=== PATIENT | female | born 1990 | race American Indian/Alaskan Native ===

== ENCOUNTER 2016-09-13 13:25 | Emergency (ER) | payer OTHER, BC ==
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
--- NOTE | 2016-09-13 19:27 | Cat Scan Report ---
FINAL REPORT PROCEDURE: CT LUMBAR SPINE WO CON TECHNIQUE: Computerized axial tomography of the lumbar spine was performed from T12 to the sacrum without contrast material. HISTORY: lspine tenderness, pain COMPARISON: No prior studies are available for comparison. FINDINGS: The vertebral body heights and alignment are maintained. Disc spaces are preserved. No acute fracture or subluxation is seen. IMPRESSION: No acute fracture or subluxation is seen
[2016-09-13] MEDS ORDERED: TYLENOL #3 PO ONE (19:36)
[2016-09-13 20:02] VITALS: BP 142/84
== END 2016-09-13 19:55 | disposition home or self-care (01) ==
LOC: ED 13:25
DX: M54.5 Low back pain (principal); G44.319 Acute post-traumatic headache, not intractable; V49.49XA Driver injured in collision with other motor vehicles in traffic accident, initial encounter; Y92.488 Other paved roadways as the place of occurrence of the external cause; Y93.89 Activity, other specified; Y99.8 Other external cause status
CPT/HCPCS: 70450; 72125; 72131